=== PATIENT | male | born 2000 | race Caucasian/White ===

== ENCOUNTER 2025-07-17 16:45 | Emergency (ER) | payer OTHER, SELFPAY ==
[2025-07-17 16:50] VITALS: BP 157/101
--- NOTE | 2025-07-17 17:34 | EDRN ---
Pt was placed in alf for stalking a girl. Pt was bailed out last night. Pt is very anxious, paranoid, restless and agitated. Pt relates that he was seeking a relationship w/ this person and thought other person was reciprocal to this idea.
[2025-07-17 17:40] VITALS: BP 150/84; BMI 23.4
--- NOTE | 2025-07-17 18:13 | ED.GENMED ---
History of Present Illness
General
Chief Complaint: Crisis Evaluation
Source: patient
Exam Limitations: none
Time Seen by Provider: 07/17/25 17:58
Nursing documentation reviewed up to this point in time: agreed with
History of Present Illness
History of Present Illness:
Note:
CHIEF COMPLAINT(S)
The patient presents with concerns related to mental health.
HISTORY OF PRESENT ILLNESS
The patient is a 24-year-old male who was brought in for concerns related to mental health. He mentioned that the situation involved feeling disoriented and making an error in decision-making, which led to significant distress. The patient denied
any intentions of self-harm or harm to others. He was able to correctly identify the current year as 2022.
PHYSICAL EXAM
General: Alert, no acute distress.
Skin: Warm, dry.
Head: Normocephalic, atraumatic.
Neck: Supple, trachea midline.
Eye Ears, nose, mouth and throat: Oral mucosa moist.
Cardiovascular: Normal peripheral perfusion, No edema.
Respiratory: Respirations are non-labored.
Gastrointestinal: Abdomen nondistended.
Back: Normal range of motion, Normal alignment.
Musculoskeletal: Normal range of motion, normal strength.
Neurological: Alert and oriented to person, place, time, and situation, No focal neurological deficit observed.
Psychiatric: Cooperative, appropriate mood & affect.
PROBLEM LIST
Acute problems:
- Mental health concerns
PLAN
- Engage in further evaluation and supportive conversations to address mental health concerns.
DIFFERENTIAL DIAGNOSIS
The Differential Diagnosis includes, in no particular order and is not limited to:
1. Acute Stress Reaction
2. Depression
3. Anxiety Disorder
4. Adjustment Disorder
5. Substance-Induced Mood Disorder
6. Schizophrenia or Schizoaffective Disorder
7. Bipolar Disorder
8. Personality Disorder
9. Post-Traumatic Stress Disorder
10. Delusional Disorder
CARE-UPDATE
07/17/25 - 19:39
The patient is scheduled for transfer to the [facility] due to illusions and suspected drug abuse. The center will arrange for the patients pickup. No suicidal ideations or risk to himself were identified during the assessment.
Disposition:
SUMMARY OF ENCOUNTER
The patient, a 24-year-old male, was seen in the emergency department for concerns related to mental health. He was experiencing disorientation and distress due to errors in decision-making, potentially linked to suspected drug abuse and illusions.
Despite these concerns, he demonstrated correct orientation to person, place, time, and situation, without presenting any risk of self-harm or harm to others.
DISPOSITION
Transfer to [facility] for further management of suspected drug abuse and mental health support.
DIAGNOSIS
Substance-Induced Mood Disorder (ICD-10: F19.14), Hallucinations (ICD-10: R44.3).
PLAN
Engage in further evaluation and supportive conversations to address mental health concerns at the [facility].
MEDICAL DECISION MAKING
- Number and Complexity of Problems: Chronic conditions affecting care, including acute mental health concerns, illusions, and suspected drug abuse.
- Data:
- Clinical information was gathered through independent assessment and confirmed with the patient for accuracy.
- Risk: The decision to transfer the patient to a specialized recovery center was based on the suspected drug abuse contributing to mental distress and illusions, necessitating a continuum of care in a controlled setting.
Phy Exam
Physical Exam
Physical Exam:
.
Course
Orders/Labs/Results
Orders:
Orders
07/17/25 18:20
Crisis Consult Urgent
Reason for Consult: delusions
Vital Signs
Initial and Last Documented VS:
Initial Vital Signs
Temp Pulse Resp BP Pulse Ox
98.4 F 115 20 157/101 98
07/17/25 16:50 07/17/25 16:50 07/17/25 16:50 07/17/25 16:50 07/17/25 16:50
Last Documented Vital Signs
Temp Pulse Resp BP Pulse Ox
98.4 F 75 16 150/84 97
07/17/25 16:50 07/17/25 17:40 07/17/25 17:40 07/17/25 17:40 07/17/25 18:14
*Pulse Oximetry
SaO2: 97
Oxygen Mode of Delivery: Room air
Patient hypoxic: no
*Critical Care Note
Total Time (30-74mins, 75-104mins- exclusive of procedures): Not Applicable
ED Attending Note
-
Portions of this chart may have been created with voice recognition software.� Occasional wrong word or��sound alike� substitutions may have occurred due to the inherent limitations of voice recognition software.
Discharge Plan
Departure
Patient Disposition: Acute Rehab Facility
Date of Disposition: 07/17/25
Time of Disposition: 19:39
Patient with high blood pressure during this ER visit?: Yes
Condition: Good
Discharge Problem:
Substance induced mood disorder, Delusions
Referrals:
Americo Blake MD [Family Provider]
Interventions
Interventions:
*Risk Screen - Suicide Last Done: 07/17/25 16:50
*General Assessment Last Done: 07/17/25 16:50
*Neglect/Abuse Screening Last Done: 07/17/25 16:50
*ED- Fall Risk Assessment Last Done: 07/17/25 17:33
*ED COVID-19 Vaccine History Last Done: 07/17/25 17:33
ED-Psychological Assessment Last Done: 07/17/25 17:33
Discharge Date and Time
Print Language: EGYPTIAN
--- NOTE | 2025-07-17 18:46 | EDRN ---
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
== END 2025-07-17 21:30 ==
LOC: EMR 16:45
PROVIDERS: EMERGENCY PHYSICIAN Emergency Medicine; FAMILY PHYSICIAN Family Medicine
DX: F19.94 Other psychoactive substance use, unspecified with psychoactive substance-induced mood disorder (principal); F22 Delusional disorders
CPT/HCPCS: 99283